=== PATIENT | female | born 1960 ===

== ENCOUNTER → 2020-07-30 | Outpatient (CLI) | payer OTHER ==
[~2020-07-30] MED LIST: ADAL40KI IJ; APIX2.5T PO; CEPH-376 PO; FOLI-17 PO; METH2.5T PO; METH25VI22 SQ; METH750T87 PO; MULT-449 PO; OXYC5CAP2 PO
== END | disposition home or self-care (01) ==
LOC: CLISVCS 14:13
PROVIDERS: ATTEND Anesthesiology
DX: Z20.828 Contact with and (suspected) exposure to other viral communicable diseases (principal)
CPT/HCPCS: 87635